=== PATIENT | female | born 1965 | race Caucasian/White ===

== ENCOUNTER 2016-06-07 23:01 | Emergency (ER) ==
[2016-06-07 23:17] VITALS: BP 124/77; TEMP 98.3; BMI 18.1
[2016-06-07] MEDS ORDERED: TORADOL IM STA (23:31)
[2016-06-07] MEDS ORDERED: DILAUDID 1 MG/ML SYRINGE IM STA (23:31)
[2016-06-07] MEDS ORDERED: PHENERGAN 25 MG/ML VIAL IM STA (23:31)
--- NOTE | 2016-06-07 23:34 | ED.PDOC ---
General ED Provider: Dr. KEN FLORES-ER Chief Complaint: Headache Stated Complaint: emilie got a bad migraine Time Seen by Physician: 23:32 Mode of Arrival: Walk-In Information Source: Patient, Family Exam Limitations: No limitations Primary Care Provider: VERO STERN Nursing and Triage Documentation Reviewed and Agree: Yes Neurological Complaint Exam - Headache Complaint/Exam Onset: Gradual Duration: 24hrs Symptoms Are: Still present Timing: Constant Episodes Lasting: Hours Worst Headache Ever: No Initial Severity: Mild Current Severity: Moderate Location: Diffuse Character: Reports: Dull, Throbbing, Pressure, Typical headache, Migraine Aggravating: Reports: Bright lights Alleviating: Reports: None Associated Signs and Symptoms: Reports: Nausea. Denies: Dizziness, Seizure, Vomiting, Sinus pressure, Fever, Neck pain, Neck stiffness, Decreased LOC, Visual changes Related History: Reports: Similar episode Related Surgical History: Reports: None SAH Risk Factors: Reports: None Meningitis Risk Factors: Reports: None SDH Risk Factors: Reports: None Temporal Arteritis Risk Factors: Reports: Female, Normal Head CT Within Last 12 Months: No Fundoscopic Exam: Present: Normal Findings Papilledema Present: No Temporal Artery Tenderness: Present: None Sinus Tenderness: Present: None TMJ Tenderness: Present: None Meningeal Signs Positive: No Pain on Passive Flexion-Positive Kernig's: Yes ROM Limited In: No Limitiations Focal Weakness: Present: None Focal Sensory Loss: Present: None Gait: Normal Nystagmus Present: No Gag Reflex Present: No [id number]: Normal Findings Romberg Test Positive: No Babinski Sign: Negative Right, Negative Left Heel to Toe Normal: No Differential Diagnoses: Migraine Review of Systems - Review Of Systems Constitutional: Reports: No symptoms Eyes: Reports: No symptoms Ears, Nose, Mouth, Throat: Reports: No symptoms Respiratory: Reports: No symptoms Cardiac: Reports: No symptoms GI: Reports: Nausea : Reports: No symptoms Musculoskeletal: Reports: No symptoms Skin: Reports: No symptoms Neurological: Reports: Headache Endocrine: Reports: No symptoms Hematologic/Lymphatic: Reports: No symptoms All Other Systems: Reviewed and Negative Past Medical History - Past Medical History Previously Healthy: No Endocrine: Reports: None Cardiovascular: Reports: None Respiratory: Reports: None Hematological: Reports: None, Anemia (old record) Gastrointestinal: Reports: None Genitourinary: Reports: None Neuro/Psych: Reports: Migraine Musculoskeletal: Reports: Other Cancer: Reports: None Last Menstrual Period: 2014 surg. Other Pertinent Past Medical History: ABLASTION UTERUS MAY 2014 - Surgical History General Surgical History: Reports: Unknown - Family History Family History: Reports: Unknown - Social History Smoking Status: Current every day smoker Hx Substance Use: No Alcohol Screening: None Lives: With family - Immunizations Tetanus Shot up to Date: Yes Physical Exam - Physical Exam Appearance: Well-appearing, No pain distress, Well-nourished Eyes: RICHARD, EOMI, Conjunctiva clear ENT: Ears normal, Nose normal, Oropharynx normal Neck: Supple Respiratory: Airway patent Cardiovascular: RRR, Pulses normal, No rub, No murmur GI/: Soft, Nontender, No masses, Bowel sounds normal, No Organomegaly Musculoskeletal: Normal strength, ROM intact, No edema, No calf tenderness Skin: Warm, Dry, Normal color Neurological: Sensation intact, Motor intact, Reflexes intact, Cranial nerves intact, Alert, Oriented Psychiatric: Affect appropriate, Mood appropriate Interpretation - Radiology Interpretation Radiology Interpretation By: Radiologist Radiology Results: Negative Exam Interpreted: CT Scan Re-Evaluation - Re-Evaluation Time of Re-Evaluation: 00:30 Status: Improved Vital Signs Stable: Yes Pain Level: 0 Appearance: NAD Lungs: Clear Skin: Warm and Dry Neuro: Alert and Oriented X3 CV: RRR Critical Care Note - Critical Care Note Total Time (mins): 0 Course - Course Orders, Labs, Meds: Orders Category Date Time Status SERUM Stat LAB 06/07/16 23:30 Ordered Hydromorphone HCl [Dilaudid 1 mg/ml Syringe] MEDS 06/07/16 23:31 Stat 1 mg IM ONCE STA Ketorolac Tromethamine [Toradol] MEDS 06/07/16 23:31 Stat 60 mg IM ONCE STA Promethazine HCl [Phenergan 25 mg/ml Vial] MEDS 06/07/16 23:31 Stat 25 mg IM ONCE STA CT HEAD W/O CONTRAST Stat RADS 06/07/16 23:30 Ordered Medications Generic Name Dose Route Start Last Admin Trade Name Freq PRN Reason Stop Dose Admin Hydromorphone HCl 1 mg 06/07/16 23:31 Dilaudid 1 Mg/Ml Syringe IM 06/07/16 23:32 ONCE STA Ketorolac Tromethamine 60 mg 06/07/16 23:31 Toradol IM 06/07/16 23:32 ONCE STA Promethazine HCl 25 mg 06/07/16 23:31 Phenergan 25 Mg/Ml Vial IM 06/07/16 23:32 ONCE STA Vital Signs: Temp Pulse Resp BP Pulse Ox 06/07/16 23:08 98.3 F 62 20 124/77 98 Departure - Departure Time of Disposition: 23:34 Disposition: HOME SELF-CARE Discharge Problem: Migraine headache Qualifiers: Migraine type: unspecified Status migrainosus presence: without status migrainosus Intractability: not intractable Qualifier Code: (G43.909) Migraine, unspecified, not intractable, without status migrainosus Instructions: Migraine Headache (ED) Condition: Good Pt referred to PMD for follow-up: Yes Additional Instructions: f/u with pcp Allergies/Adverse Reactions: Allergies erythromycin base Adverse Reaction (Mild, Verified 06/07/16 23:15) Rash Home Medications: Ambulatory Orders 1 [No Reported Medications] 06/07/16 Disposition Discussed With: Patient, Family
[2016-06-07 23:54] LABS: SERUM PREGNANCY INTERNAL QC INTERNAL QC VALID
--- NOTE | 2016-06-08 00:41 | CT ---
EXAM: CT scan brain without contrast HISTORY: Headache COMPARISON: CT scan brain 09/11/2015 FINDINGS: Contiguous axial images were obtained from the skull base to the convexities without cont rast utilizing 5-mm collimation. Sagittal and coronal reconstructions were imaged and reviewed. The ventricles and CSF spaces are within normal limits. No acute intracranial findings. The visualize d paranasal sinuses and mastoid air cells are clear. IMPRESSION: No acute intracranial findings.
== END 2016-06-08 00:50 | disposition home or self-care (01) ==
LOC: ED 23:01
DX: G43.909 Migraine, unspecified, not intractable, without status migrainosus (principal); F17.210 Nicotine dependence, cigarettes, uncomplicated
CPT/HCPCS: 36415; 84703; 96372; 99283

== ENCOUNTER 2016-08-28 09:43 | Emergency (ER) ==
[2016-08-28 09:43] VITALS: BMI 17.9
[2016-08-28 09:46] VITALS: BP 116/80; TEMP 96.4
[2016-08-28 10:04] LABS: BILIRUBIN,URINE 1+ (NEGATIVE); KETONES,URINE Negative (NEGATIVE); LEUKOCYTE ESTERASE ,URINE Negative (NEGATIVE); NITRITE,URINE Negative (NEGATIVE); PH,URINE 5.5 (5-9); PROTEIN,URINE 1+ (NEGATIVE); URINE, BLOOD Trace-intact (NEGATIVE)
[2016-08-28] MEDS ORDERED: NORFLEX IM STA (10:08)
[2016-08-28] MEDS ORDERED: TORADOL IM STA (10:08)
[2016-08-28 10:12] LABS: ADD URINE MICROSCOPIC YES; URINE PREGNANCY INTERNAL QC INTERNAL QC VALID
[2016-08-28 10:13] LABS: BACTERIA,URINE 2+ (NOT PRESENT)
--- NOTE | 2016-08-28 11:32 | ED.PDOC ---
General ED Provider: Dr. LEO MORALES Chief Complaint: Back Pain Stated Complaint: Patient states she has been having right lower back pain for one day that radiates to the right lower extremity. Denies any trauma. Denies any urinary symtoms but states that her urine smells strong. Time Seen by Physician: 11:30 Mode of Arrival: Walk-In Information Source: Patient Primary Care Provider: VERO STERN Nursing and Triage Documentation Reviewed and Agree: Yes Musculoskeletal Complaint Exam - Back Pain Complaint/Exam Mechanism of Injury: Reports: No known trauma Onset/Duration: 1 day Symptoms Are: Still present Timing: Constant Initial Severity: Severe Current Severity: Severe Location: Reports: Discrete (right lower back ), Radiating (right leg ) Character: Reports: Aching, Throbbing Aggravating: Reports: Movements, Bending, Walking Alleviating: Reports: Rest Associated Signs and Symptoms: Reports: Numbness, Pain with weight bearing. Denies: Swelling, Redness, Bruising, Fever, Weakness, Tingling, Abdominal pain, Flank pain, Bladder incontinence, Bowel incontinence, Weight loss TAD Risk Factors: Reports: None AAA Risk Factors: Reports: None Cauda Equina Risk Factors: Reports: None Epidural Abcess Risk Factors: Reports: None Related Surgical History: Reports: None Focal Tenderness: Yes (right ) Paraspinal Muscle Tenderness: Yes Paraspinal Muscle Spasm: Yes Scoliosis: No Lordosis: No Kyphosis: No SLR Test: Right Positive, Left Negative Hip Motion Testing Pain: Right Negative, Left Negative Focal Weakness: Present: None Focal Sensory Loss: Present: None Gait: Present: Abnormal Back Picture: 1 - pain 2 - radiation Differential Diagnoses: Compressive Cord Syndrome, Strain, Sprain, Other ( sciatica ) Review of Systems - Review Of Systems Constitutional: Reports: No symptoms Musculoskeletal: Reports: Back pain, Muscle pain Neurological: Reports: Anxiety All Other Systems: Reviewed and Negative Past Medical History - Past Medical History Previously Healthy: No Endocrine: Reports: None Cardiovascular: Reports: None Respiratory: Reports: None Hematological: Reports: None, Anemia (old record) Gastrointestinal: Reports: None Genitourinary: Reports: None Neuro/Psych: Reports: Migraine Musculoskeletal: Reports: Other Cancer: Reports: None Last Menstrual Period: NONE Other Pertinent Past Medical History: ABLASTION UTERUS MAY 2014 - Surgical History General Surgical History: Reports: Unknown - Family History Family History: Reports: Unknown - Social History Smoking Status: Current every day smoker Hx Substance Use: No Alcohol Screening: None Physical Exam - Physical Exam Appearance: Ill-appearing, Thin Ill-appearing: Mild Pain Distress: Severe Neck: Supple Respiratory: Airway patent, Breath sounds clear, Breath sounds equal, Respirations nonlabored Cardiovascular: RRR, Pulses normal, No rub, No murmur GI/: Soft, Nontender, No masses, Bowel sounds normal, No Organomegaly Musculoskeletal: Normal strength, No edema, No calf tenderness, Limited ROM Skin: Warm Neurological: Sensation intact Interpretation - Radiology Interpretation Radiology Interpretation By: ED Physician Radiology Results: Negative Exam Interpreted: Other (LSpine x ray negative for fracture) Critical Care Note - Critical Care Note Total Time (mins): 0 Course - Course Orders, Labs, Meds: Lab Review 08/28/16 09:30 Urine Color Yellow Urine Clarity Clear Urine pH 5.5 Ur Specific [place] >=1.030 Urine Protein 1+ Urine Glucose (UA) Negative Urine Ketones Negative Urine Blood Trace-intact Urine Nitrite Negative Urine Bilirubin 1+ Urine Urobilinogen 0.2 Ur Leukocyte Esterase Negative Urine Microscopic RBC 2-5 Ur Squamous Epith Cells 5-10 Urine Bacteria 2+ Urine Mucus 2+ Urine Test Negative Orders Category Date Time Status URINALYSIS C & S IF INDICATED Stat LAB 08/28/16 09:30 Completed URINE CULTURE Stat LAB 08/28/16 09:30 Received URINE Stat LAB 08/28/16 09:30 Completed Ketorolac Tromethamine [Toradol] MEDS 08/28/16 10:08 Discontinued 60 mg IM ONCE STA Morphine Sulfate [Morphine 4 mg/ml Syringe] MEDS 08/28/16 11:43 Discontinued 4 mg IM ONCE STA Ondansetron HCl/Pf [Zofran 4 mg/2 ml] MEDS 08/28/16 11:43 Discontinued 4 mg IM ONCE STA Orphenadrine Citrate [Norflex] MEDS 08/28/16 10:08 Discontinued 60 mg IM ONCE STA LUMBAR SPINE, 2 OR 3 VIEWS Stat RADS 08/28/16 11:28 Completed Medications Discontinued Medications Generic Name Dose Route Start Last Admin Trade Name Freq PRN Reason Stop Dose Admin Ketorolac Tromethamine 60 mg 08/28/16 10:08 08/28/16 10:20 Toradol IM 08/28/16 10:09 60 mg ONCE STA Administration Morphine Sulfate 4 mg 08/28/16 11:43 08/28/16 12:00 Morphine 4 Mg/Ml Syringe IM 08/28/16 11:44 4 mg ONCE STA Administration Ondansetron HCl 4 mg 08/28/16 11:43 08/28/16 11:58 Zofran 4 Mg/2 Ml IM 08/28/16 11:44 4 mg ONCE STA Administration Orphenadrine Citrate 60 mg 08/28/16 10:08 08/28/16 10:17 Norflex IM 08/28/16 10:09 60 mg ONCE STA Administration Vital Signs: Temp Pulse Resp BP Pulse Ox 08/28/16 09:43 96.4 F L 97 H 20 116/80 98 Departure - Departure Time of Disposition: 12:07 Disposition: HOME SELF-CARE Discharge Problem: Sciatica of right side UTI (urinary tract infection) Qualifiers: Urinary tract infection type: acute cystitis Hematuria presence: without hematuria Qualifier Code: (N30.00) Acute cystitis without hematuria Instructions: Urinary Tract Infection in Women (ED), Sciatica (ED) Condition: Stable Pt referred to PMD for follow-up: Yes Additional Instructions: Push fluids take antibiotics as prescribed Follow up with PCP in 3 days Prescriptions: Ibuprofen [Motrin] 600 mg PO Q6H #20 tablet Nitrofurantoin Monohyd/M-Cryst [Macrobid] 100 mg PO BID #14 capsule Tramadol HCl [Ultram] 50 mg PO Q4H PRN #15 tablet PRN Reason: Severe Pain Allergies/Adverse Reactions: Allergies erythromycin base Adverse Reaction (Mild, Verified 08/28/16 09:47) Rash Home Medications: Ambulatory Orders Ibuprofen [Motrin] 600 mg PO Q6H #20 tablet 08/28/16 Nitrofurantoin Monohyd/M-Cryst [Macrobid] 100 mg PO BID #14 capsule 08/28/16 Tramadol HCl [Ultram] 50 mg PO Q4H PRN #15 tablet 08/28/16 Disposition Discussed With: Patient
[2016-08-28] MEDS ORDERED: NORCO 5-325 PO STA (11:38)
[2016-08-28] MEDS ORDERED: ZOFRAN 4 MG/2 ML IM STA (11:43)
[2016-08-28] MEDS ORDERED: MORPHINE 4 MG/ML SYRINGE IM STA (11:43)
--- NOTE | 2016-08-28 17:56 | DI ---
EXAM: Three views of the lumbar spine. History: Lower back pain. Findings: No acute fracture or subluxation. Disc space heights are preserved. Impression: Unremarkable exam.
== END 2016-08-28 13:00 | disposition home or self-care (01) ==
LOC: ED 09:43
DX: N30.00 Acute cystitis without hematuria (principal); M54.41 Lumbago with sciatica, right side; F17.210 Nicotine dependence, cigarettes, uncomplicated
CPT/HCPCS: 81001; 81025; 87086; 96372; 99283

== ENCOUNTER 2016-09-01 06:09 | Emergency (ER) ==
[2016-09-01 06:10] VITALS: BMI 17.9
[2016-09-01 06:22] VITALS: BP 122/76; TEMP 97.3
--- NOTE | 2016-09-01 06:44 | ED.PDOC ---
General ED Provider: Dr. BRANNON ODOM JR Chief Complaint: Urinary Problem Stated Complaint: right lower back pain, nausea, unable to sleep, dizziness. since starting Nitrofurantoin 08/28/16 kidney infection - in ER.[End] NAUSEA SINCE ANTIBIOTIC for KIDNEY INFECTION.EATING WITH ANTIBIOTICS NAUSEATED. INFECTION IMPROVING, RIGHT FLANK PAIN MALASE.[End] 3 days 97.3 83 20 98% 122/ 76 5/10. patient feeling better lying down,denies nausea medicaton in past, mother requests labs due to family history of renal failure, patient appears well, states feels ill nonspecific except right flank pain and tenderness muscle tenderness without definite CVAT on exam. : ROSA KHAN J: 08/28/16Dr. LOE MORALES. : Back Pain: right lower back pain one day radiates right lower extremity. Denies trauma. Denies urinary symtoms urine smells strong.: Severe : Discrete (right lower back ), Radiating (right leg )Focal Tenderness: (right ) Paraspinal Muscle Tenderness: Paraspinal Muscle Spasm:SLR Test: Right Positive, Left Negative: NegativeExam Interpreted: (LSpine x ray negative for fracture) Urine Yellow Clear >=1.030 Bacteria 2+ Mucus 2+ Test Negative [Toradol ] 60 mg IM ONCE STA [Morphine 4 mg/ml Syringe] [Zofran 4 mg/2 ml] [Norflex]60 mg IM LUMBAR SPINE, 2 OR 3 VIEWS Stat-- Sciatica of right side--UTI Push fluidstake antibiotics as prescribed Follow up with PCP in 3 days Ibuprofen [ Motrin] 600 mg PO Q6H #20 tabletNitrofurantoin Monohyd/M-Cryst [Macrobid] 100 mg PO BID #14 capsuleTramadol HCl [Ultram] 50 mg PO Q4H PRN #15 tablet. : ROSA KHAN: [place]. : 06/07/16 : bad migraine: Hours: Dull, Throbbing , Pressure, Typical headache, Migraine: Bright lights Pain on Passive Flexion- Positive Kernig's: : Negative:CT Scan [Dilaudid 1 mg/ml Syringe] [Toradol] 60 mg [Phenergan 25 mg/ml Vial] CT HEAD W/O CONTRAST Migraine headache. : ROSA KHAN : SHAUNA JAMES. : 01/12/16: ABSCESS NASAL Primary Care Provider: VERO STERN (NASAL EXAM POSTIVE ABSCESS DOCUMENTED ON THE PHOTOS EDGE OF NASAL CAVITY LEFT SIDE): Abscess [[place] 10-325 Tablet] [Bactrim Ds 800/160 mg] . : ROSA KHAN : FLOR GARCIA: Been hurting in the head, typical migrain, usually gets better with exdrine but not today. light bothering: Severe Location: Left, Frontal: Bright lights Pain on Passive Flexion-Positive Kernig's : No ;Babinski Sign: Negative Right, Negative Left: Migraine: Negative: CT Scan [Morphine 2 mg/ml Syringe] [Zofran 4 mg/2 ml] CT HEAD W/O CONTRAST Stat [[place] 10-325 Tablet]. : ROSA KHAN: SHAUNA JAMES. : 03/04/15 : Neck Pain Non- Injury: neck pain chronic(encounter for med Primary Care Provider:FLOR GARCIA- C: Neck pain, medication refill: Cervical Sprain (ED) [[place] 10-325 Tablet]. : ROSA KHAN. : 02/03/15 Dr. SHAUNA Acuna: left hand /arm numness(no trauma slept in a postion caused the issue): Arm numbness left: Paresthesia, Cervical Sprain, Cervical Radiculopathy: clinic for MRI /NEUROLOGY CONSULT. : ROSA KHAN: 10/03/14 : Nose Injury: PAIN NOSE SEEN 10/01 FOR CELLULITIS OF NASAL TIP. INSTRUCTED SEEK ADITIONAL MEDICAL CARE IF NO IMPROVMENT. HEADACHE.[ End] er 10/01 same problem a lot better but headache. no injury to nose,has a sore. nose is slightly swollen and red.[End]. difficult history, better than initial worse than yesterday up all night with headache, unwilling to take excedrin with narosyn, nose more painful, took Naprosyn yesterday;usual headache always better with excedrin, declines pain shots,has had no excedrin ( right nostril without fluctuance or drainage no focal abscess seen or palpable- offered toradol offered repeat rocephin)(scalp nontender nose is card tender no LAD supple )begin new antibiotic only if not resolved(if pain and swelling are not better)continue Bactrim, Naprosyn and [place] for pain Excedrin, but not within 8 hours of taking Naprosyn double Excedrin if needed for headache continue warm soaks[[place] 5-325] [Naprosyn] [Bactrim Ds Tablet] [Augmentin 875 -125 mg Tab]. : ROSA KHAN. : 10/01/14 : Dr. BRANNON ODOM JR: NOSE SWOLLEN SORE INSIDE RIGHT SIDE OF NOSTIL, RED SWOLLEN WITH SWELLING INTO RIGHT EYE[ End ]2days. Sinus pain Nose Picture: 1 - red swollen [place] 5-325 Rocephin : Cellulitis of nasal tip: (recheck tomorrow)PMD, may recheck here if able to come in at 6AM()pain and swelling should improve quickly antibiotic until gone may use warm soaks four times a day[[place] 5-325] [Naprosyn] 500 mg [Bactrim Ds Tablet] Time Seen by Physician: 06:46 Mode of Arrival: Walk-In Information Source: Patient Exam Limitations: No limitations Primary Care Provider: VERO STERN Nursing and Triage Documentation Reviewed and Agree: No Review of Systems - Review Of Systems Constitutional: Reports: Malaise, Weakness Eyes: Reports: No symptoms Ears, Nose, Mouth, Throat: Reports: No symptoms Respiratory: Reports: No symptoms Cardiac: Reports: No symptoms GI: Reports: No symptoms : Reports: Flank pain. Denies: Dysuria Musculoskeletal: Reports: Back pain Skin: Reports: No symptoms Neurological: Reports: No symptoms Endocrine: Reports: No symptoms Hematologic/Lymphatic: Reports: No symptoms All Other Systems: Other Past Medical History - Past Medical History Previously Healthy: No Endocrine: Reports: None Cardiovascular: Reports: None Respiratory: Reports: None Hematological: Reports: None, Anemia (old record) Gastrointestinal: Reports: None Genitourinary: Reports: None Neuro/Psych: Reports: Migraine Musculoskeletal: Reports: Other Cancer: Reports: None Last Menstrual Period: 05/26 Other Pertinent Past Medical History: ABLASTION UTERUS MAY 2014 - Surgical History General Surgical History: Reports: Unknown - Family History Family History: Reports: Unknown - Social History Smoking Status: Current every day smoker Hx Substance Use: No Alcohol Screening: None - Immunizations Tetanus Shot up to Date: Yes Physical Exam - Physical Exam Appearance: Well-appearing, Thin, Cachectic Pain Distress: Mild Eyes: RICHARD, EOMI, Conjunctiva clear ENT: Ears normal, Nose normal, Oropharynx normal Neck: Supple Respiratory: Airway patent, Breath sounds clear, Breath sounds equal, Respirations nonlabored Cardiovascular: RRR, Pulses normal, No rub, No murmur GI/: Soft, Nontender, No masses, Bowel sounds normal, No Organomegaly Musculoskeletal: Normal strength, ROM intact, No edema, No calf tenderness ( tender right flank superficial no lesions no radiation) Skin: Warm, Dry, Normal color Neurological: Sensation intact, Motor intact, Reflexes intact, Cranial nerves intact ([place]), Alert, Oriented Psychiatric: Affect appropriate, Mood appropriate Critical Care Note - Critical Care Note Total Time (mins): 0 Course - Course Hematology/Chemistry: 09/01/16 06:55 09/01/16 06:55 Orders, Labs, Meds: Lab Review 09/01/16 06:55 WBC 7.01 RBC 4.51 Hgb 14.2 Hct 39.8 MCV 88.2 MCH 31.5 H MCHC 35.7 H RDW Coeff of David 12.3 Plt Count 269 Immature Gran % (Auto) 0.1 Neut % (Auto) 52.2 Lymph % (Auto) 28.7 [place] % (Auto) 9.4 Eos % (Auto) 7.7 H Baso % (Auto) 1.9 Immature Gran # (Auto) 0.0 Neut # 3.7 Lymph # 2.0 [place] # 0.7 Eos # 0.5 Baso # 0.1 Sodium 141 Potassium 3.6 Chloride 104 Carbon Dioxide 29 Anion Gap 11.6 BUN 15 Creatinine 0.79 Estimated GFR (MDRD) 77.00 BUN/Creatinine Ratio 18.98 Glucose 49 L* Calcium 9.2 Total Bilirubin 0.48 AST 18 ALT 23 Alkaline Phosphatase 72 Total Protein 6.9 Albumin 4.0 Globulin 2.9 Albumin/Globulin Ratio 1.38 Amylase 58 Lipase 24 Urine Color Yellow Urine Clarity Clear Urine pH 6.0 Ur Specific [place] 1.025 Urine Protein Negative Urine Glucose (UA) Negative Urine Ketones Negative Urine Blood Trace-intact Urine Nitrite Negative Urine Bilirubin Negative Urine Urobilinogen 0.2 Ur Leukocyte Esterase Negative Urine Microscopic RBC 2-5 Urine Microscopic WBC 2-5 Ur Squamous Epith Cells 2-5 Orders Category Date Time Status AMYLASE Stat LAB 09/01/16 06:55 Completed CBC W/ AUTO DIFF Stat LAB 09/01/16 06:55 Completed COMPREHENSIVE METABOLIC PANEL Stat LAB 06/21/17 06:55 Completed LIPASE Stat LAB 09/01/16 06:55 Completed UA [URINALYSIS C & S IF INDICATED] Stat LAB 09/01/16 06:55 Completed Promethazine Syrup [Phenergan Syrup] MEDS 09/01/16 06:53 Discontinued 10 ml PO ONCE STA CT ABDOMEN/PELVIS WO CONTRAST Stat RADS 09/01/16 07:21 Completed Medications Discontinued Medications Generic Name Dose Route Start Last Admin Trade Name Ced PRN Reason Stop Dose Admin Promethazine HCl 10 ml 09/01/16 06:53 09/01/16 07:02 Phenergan Syrup PO 09/01/16 06:54 10 ml ONCE STA Administration Vital Signs: Temp Pulse Resp BP Pulse Ox 09/01/16 06:13 97.3 F L 83 20 122/76 98 Departure - Departure Time of Disposition: 08:08 Disposition: HOME SELF-CARE Discharge Problem: Nausea alone Medication adverse effect Qualifiers: Encounter type: initial encounter Qualifier Code: (T88.7XXA) Unspecified adverse effect of drug or medicament, initial encounter Back pain Qualifiers: Back pain location: low back pain Chronicity: chronic Back pain laterality: right Sciatica presence: without sciatica Qualifier Code: (M54.5) Low back pain Instructions: Adverse Drug Reaction (ED), Chronic Back Pain (ED), Dextrose/ Fructose/Phosphoric Acid (By mouth) Condition: Good Pt referred to PMD for follow-up: Yes Additional Instructions: stop nitrofuratoin continue to increase fluids, expect to get 4-8 eight ounce cups of liquid in daily discuss back pain with PMD may follow with [facility] note decreased vitamin D in past - ask PMD if supplements are indicated may use phenergan for nausea may use flexeril for back spasms- discuss with PMD eat small amounts frequently return if worse note sugar was low- recommend increase complex carbohydrates(vegetables) Prescriptions: Cyclobenzaprine HCl [Flexeril] 5 mg PO TID PRN #15 tablet PRN Reason: Spasms Promethazine HCl [Phenergan Tab] 25 mg PO QID PRN #12 tablet PRN Reason: Nausea / Vomiting Allergies/Adverse Reactions: Allergies erythromycin base Adverse Reaction (Mild, Verified 09/01/16 06:22) Rash Home Medications: Ambulatory Orders Ibuprofen [Motrin] 600 mg PO Q6H #20 tablet 08/28/16 Nitrofurantoin Monohyd/M-Cryst [Macrobid] 100 mg PO BID #14 capsule 08/28/16 Cyclobenzaprine HCl [Flexeril] 5 mg PO TID PRN #15 tablet 09/01/16 Promethazine HCl [Phenergan Tab] 25 mg PO QID PRN #12 tablet 09/01/16
[2016-09-01] MEDS ORDERED: PHENERGAN SYRUP PO STA (06:53)
[2016-09-01 07:06] LABS: BASOPHILS # (AUTO) 0.1 K/uL (0-0.2); BASOPHILS % (AUTO) 1.9 % (0.0-3.0); EOSINOPHILS # (AUTO) 0.5 K/ul (0.0-0.7); EOSINOPHILS % (AUTO) 7.7 % (0.0-7.0); HEMATOCRIT 39.8 % (37.0-47.0); HEMOGLOBIN 14.2 g/dl (12.0-16.0); IMMATURE GRANULOCYTE % (AUTO) 0.1 % (0.0-5.0); LYMPHOCYTES % (AUTO) 28.7 (10.0-50.0); MEAN CORPUSCULAR HEMOGLOBIN 31.5 pg (27.0-31.0); MEAN CORPUSCULAR HGB CONC 35.7 (31.8-35.4); MEAN CORPUSCULAR VOLUME 88.2 fl (81.0-99.0); MONOCYTES # (AUTO) 0.7 K/uL (0.4-2.0); MONOCYTES % (AUTO) 9.4 (0-10); NEUTROPHILS # (AUTO) 3.7 K/ul (2.0-6.9); NEUTROPHILS % (AUTO) 52.2; PLATELET COUNT 269 10^3/uL (140-440); RED BLOOD COUNT 4.51 10^6/ul (4.20-5.40); WHITE BLOOD COUNT 7.01 K/ul (4.6-10.2)
[2016-09-01 07:10] LABS: BILIRUBIN,URINE Negative (NEGATIVE); KETONES,URINE Negative (NEGATIVE); LEUKOCYTE ESTERASE ,URINE Negative (NEGATIVE); NITRITE,URINE Negative (NEGATIVE); PROTEIN,URINE Negative (NEGATIVE); URINE, BLOOD Trace-intact (NEGATIVE)
[2016-09-01 07:18] LABS: ADD URINE MICROSCOPIC YES
[2016-09-01 07:25] LABS: ALBUMIN/GLOBULIN RATIO 1.38; ANION GAP 11.6; BILIRUBIN,TOTAL 0.48 mg/dL (0.00-1.20); BUN/CREATININE RATIO 18.98; CALCIUM 9.2 mg/dL (8.2-10.2); CREATININE 0.79 mg/dL (0.60-1.30); POTASSIUM 3.6 mmol/L (3.5-5.10); TOTAL PROTEIN 6.9 g/dL (6.4-8.2)
--- NOTE | 2016-09-01 08:07 | CT ---
EXAM: CT ABDOMEN AND PELVIS HISTORY: Flank pain, right-sided, hematuria TECHNIQUE: CT abdomen and pelvis without intravenous contrast. Images were reconstructed using 3 m m section thickness. Reformations were prepared. COMPARISON: None FINDINGS: Paucity of intraperitoneal fat leads difficulty visualizing certain organs and abdominal/pelvic comp artments. There is at least one punctate calcification within the right kidney measuring about 0.2 cm consistent with nephrolithiasis. Ureters are poorly seen, especially the distal aspects. There is no convincing evidence of ureteral calculus. No secondary signs of ureteral obstruction are pres ent including no hydronephrosis. Without intravenous contrast administration, evaluation for pyelon ephritis is limited and clinical correlation is recommended. There is no noticeable perinephric fat stranding identified. The liver and spleen have no visible focal lesions. Gallbladder, pancreas a nd adrenal glands within normal limits. Mild atherosclerotic disease. Stomach grossly within normal limits. No appendix is identified. Bowel gas pattern is within sara l limits. Uterus and urinary bladder are within normal limits. No ascites is visualized. Ventral abdominal wall is intact without herniation. Bones appear appropriate for age. Lung bases are clear. There is no pneumoperitoneum. IMPRESSION: 1. Right nephrolithiasis. Poor visualization of the ureters secondary to a paucity of intraperiton eal fat. No convincing evidence of ureteral obstruction. No hydronephrosis. Urinary bladder gross ly unremarkable. 2. Minimal atherosclerosis.
== END 2016-09-01 08:20 | disposition home or self-care (01) ==
LOC: ED 06:09
DX: M54.5 Low back pain (principal); R11.0 Nausea; T88.7XXA Unspecified adverse effect of drug or medicament, initial encounter; R42 Dizziness and giddiness; F17.210 Nicotine dependence, cigarettes, uncomplicated; N28.89 Other specified disorders of kidney and ureter
CPT/HCPCS: 36415; 80053; 81001; 82150; 82962; 83690; 85025; 99283

== ENCOUNTER 2018-07-20 07:43 | Emergency (ER) ==
[2018-07-20 08:01] VITALS: BP 128/77; TEMP 97.8; BMI 17.8
[2018-07-20] MEDS ORDERED: DUONEB NEB STA (08:04)
--- NOTE | 2018-07-20 08:10 | ED.PDOC ---
General ED Provider: Dr. SHAUNA JAMES Chief Complaint: Respiratory Complaint Stated Complaint: cough, congestion Time Seen by Physician: 08:00 (beth present at all times ) Mode of Arrival: Walk-In Information Source: Patient Exam Limitations: No limitations Nursing and Triage Documentation Reviewed and Agree: Yes Does patient meet sepsis criteria?: No If yes, has appropriate treatment been initiated?: No (1 pk/day smoker ) System Inflammatory Response Syndrome: Not Applicable Sepsis Protocol: For patient's 13 years and over: Temp is 96.8 and below OR 101 and greater Pulse >90 BPM Resp >20/minute Acutely Altered Mental Status Are patient's symptoms suggestive of a new infection, such as: -Pneumonia -Skin, Soft Tissue -Endocarditis -UTI -Bone, Joint Infection -Implantable Device -Acute Abdominal Infection -Wound Infection -Meningitis -Blood Stream Catheter Infection -Unknown Respiratory Complaint Exam - Respiratory Complaint/Exam Onset/Duration: 2 days Symptoms Are: Still present Timing: Constant Initial Severity: Mild Current Severity: Mild Location: Nose, Throat, Chest Character: Reports: Non-productive cough Aggravating: Reports: URI, Weather Alleviating: Reports: None Associated Signs and Symptoms: Reports: URI, Nasal congestion. Denies: Rapid breathing, Dyspnea, Fever, Chills, Chest pain, Pleuritic chest pain, Wheezing, Hemoptysis, Dizziness, Calf pain, Calf swelling, Edema, Hoarseness, Sinus discomfort, Vomiting, Sore throat, Weight loss, Decreased oral intake, Increased thirst, Increased appetite, Increased urination Related History: Reports: Similar episode History of Healthcare-Acquired Pneumonia: No Related Surgical History: Reports: None Pulmonary Embolism Risk Factors: Smoking Cardiac Risk Factors: Reports: Smoking Pseudomonas Risk Factors: Reports: None Tuberculosis Risk Factors: Reports: None Status Asthmaticus Risk Factors: Reports: None Home Oxygen Use: No Recent Stress Test: No Recent Echo/LV Function: No Current Antibiotic Use: No Current Asthma Medication Use: No Respiratory Distress: None Inadequate Respiratory Effort: No Dysphagia Present: No Stridor Present: No JVD Present: No Accessory Muscle Use: No Retractions: Not Present Diminished Breath Sounds: No Sinus Tenderness: None Grunting Respirations: No Kussmaul Respirations: No Differential Diagnoses: Pneumonia, Bronchitis, URI, Influenza, Lower Resp. Infection Review of Systems - Review Of Systems Constitutional: Reports: Malaise Eyes: Reports: No symptoms Ears, Nose, Mouth, Throat: Reports: No symptoms Respiratory: Reports: Cough Cardiac: Reports: No symptoms GI: Reports: No symptoms : Reports: No symptoms Musculoskeletal: Reports: No symptoms Skin: Reports: No symptoms Neurological: Reports: No symptoms Endocrine: Reports: No symptoms Hematologic/Lymphatic: Reports: No symptoms All Other Systems: Reviewed and Negative Past Medical History - Past Medical History Previously Healthy: No Endocrine: Reports: None Cardiovascular: Reports: None Respiratory: Reports: None Hematological: Reports: Anemia, None Gastrointestinal: Reports: None Genitourinary: Reports: None Neuro/Psych: Reports: Migraine Musculoskeletal: Reports: Other Cancer: Reports: None Last Menstrual Period: N./A Other Pertinent Past Medical History: ABLASTION UTERUS MAY 2014 - Surgical History General Surgical History: Reports: Unknown - Family History Family History: Reports: Unknown - Social History Smoking Status: Current every day smoker Hx Substance Use: No Alcohol Screening: None Physical Exam - Physical Exam Appearance: Ill-appearing Ill-appearing: Mild Eyes: RICHARD, EOMI, Conjunctiva clear ENT: Ears normal, Nose normal, Oropharynx normal Respiratory: Rhonchi, Wheezes Cardiovascular: RRR, Pulses normal, No rub, No murmur GI/: Soft, Nontender, No masses, Bowel sounds normal, No Organomegaly Musculoskeletal: Normal strength, ROM intact, No edema, No calf tenderness Skin: Warm, Dry, Normal color Neurological: Sensation intact, Motor intact, Reflexes intact, Cranial nerves intact, Alert, Oriented Psychiatric: Affect appropriate, Mood appropriate Critical Care Note - Critical Care Note Total Time (mins): 0 Course - Course Hematology/Chemistry: 07/20/18 08:10 07/20/18 08:10 Orders, Labs, Meds: Lab Review 07/20/18 07/20/18 07/20/18 08:03 08:10 08:10 WBC 9.84 RBC 4.51 Hgb 14.1 Hct 39.7 MCV 88.0 MCH 31.3 H MCHC 35.5 H RDW Coeff of David 12.1 Plt Count 237 Immature Gran % (Auto) 0.2 Neut % (Auto) 82.9 Lymph % (Auto) 4.2 L Love % (Auto) 8.1 Eos % (Auto) 3.6 Baso % (Auto) 1.0 Immature Gran # (Auto) 0.0 Neut # (Auto) 8.2 H Lymph # (Auto) 0.4 L Love # (Auto) 0.8 Eos # (Auto) 0.4 Baso # (Auto) 0.1 Sodium 133.6 L Potassium 3.47 L Chloride 100.2 Carbon Dioxide 26.2 Anion Gap 10.67 BUN 10.7 Creatinine 0.58 L Estimated GFR (MDRD) 110.00 BUN/Creatinine Ratio 18.44 Glucose 110.1 H Calcium 8.85 Total Bilirubin 0.83 AST 25.9 ALT 21.2 Alkaline Phosphatase 80.4 Total Protein 6.68 Albumin 4.38 Globulin 2.30 Albumin/Globulin Ratio 1.90 Urine Color Urine Clarity Urine pH Ur Specific Cheney Urine Protein Urine Glucose (UA) Urine Ketones Urine Blood Urine Nitrite Urine Bilirubin Urine Urobilinogen Ur Leukocyte Esterase Urine Microscopic RBC Ur Squamous Epith Cells Urine Mucus Influ A Molecular Assay Negative by naat Influ B Molecular Assay Negative by naat 07/20/18 09:00 WBC RBC Hgb Hct MCV MCH MCHC RDW Coeff of David Plt Count Immature Gran % (Auto) Neut % (Auto) Lymph % (Auto) Love % (Auto) Eos % (Auto) Baso % (Auto) Immature Gran # (Auto) Neut # (Auto) Lymph # (Auto) Love # (Auto) Eos # (Auto) Baso # (Auto) Sodium Potassium Chloride Carbon Dioxide Anion Gap BUN Creatinine Estimated GFR (MDRD) BUN/Creatinine Ratio Glucose Calcium Total Bilirubin AST ALT Alkaline Phosphatase Total Protein Albumin Globulin Albumin/Globulin Ratio Urine Color Yellow Urine Clarity Hazy Urine pH 7.5 Ur Specific Cheney 1.020 Urine Protein 1+ Urine Glucose (UA) Negative Urine Ketones Negative Urine Blood Trace-intact Urine Nitrite Negative Urine Bilirubin Negative Urine Urobilinogen 1.0 Ur Leukocyte Esterase Negative Urine Microscopic RBC 0-2 Ur Squamous Epith Cells 50-100 Urine Mucus Trace Influ A Molecular Assay Influ B Molecular Assay Orders Category Date Time Status NEBULIZER TREATMENT Stat CARDIO 07/20/18 08:05 Completed CBC W/ AUTO DIFF Stat LAB 07/20/18 08:10 Completed COMPREHENSIVE METABOLIC PANEL Stat LAB 07/20/18 08:10 Completed FLU A/B MOLECULAR Stat LAB 07/20/18 08:03 Completed MOLECULAR GROUP A STREP Stat LAB 07/20/18 08:03 Completed UA [URINALYSIS C & S IF INDICATED] Stat LAB 07/20/18 09:00 Completed Ipratropium/Albuterol Neb [Duoneb] MEDS 07/20/18 08:04 Discontinued 1 vial NEB ONCE STA CT CHEST W/O CONTRAST Stat RADS 07/20/18 08:04 Completed Medications Discontinued Medications Generic Name Dose Route Start Last Admin Trade Name Ced PRN Reason Stop Dose Admin Albuterol/Ipratropium 1 vial 07/20/18 08:04 07/20/18 08:22 Duoneb NEB 07/20/18 08:05 1 vial ONCE STA Administration Vital Signs: Temp Pulse Resp BP Pulse Ox 07/20/18 07:44 97.8 F 78 20 128/77 95 Departure - Departure Time of Disposition: 09:31 Disposition: HOME SELF-CARE Discharge Problem: Bronchitis Instructions: How to Stop Smoking (ED), Acute Bronchitis (ED), Smoke Inhalation (ED), Secondhand Smoke Exposure in Children (ED), Tobacco Stomatitis (DC) Condition: Good Pt referred to PMD for follow-up: Yes IPMP verified?: No Additional Instructions: Please call your Family Physician as soon as possible to schedule a follow-up appointment. Prescriptions: Amoxicillin 500 mg PO Q8HR #21 tablet Hydrocodone/Chlorphen Polis [Tussionex] 5 ml PO Q12H 5 Days disp.syrin Prednisone 20 mg PO DAILYWM #5 tablet Allergies/Adverse Reactions: Allergies erythromycin base Adverse Reaction (Mild, Verified 07/20/18 07:55) Rash Home Medications: Ambulatory Orders Amoxicillin 500 mg PO Q8HR #21 tablet 07/20/18 Hydrocodone/Chlorphen Polis [Tussionex] 5 ml PO Q12H 5 Days disp.syrin Prednisone 20 mg PO DAILYWM #5 tablet 07/20/18 Disposition Discussed With: Patient, Family
--- NOTE | 2018-07-20 09:05 | CT ---
EXAM: CT of the chest without contrast History: Cough, smoker. Comparison: Chest CT 10/24/2009 Technique: Multiplanar CT images through the thorax were obtained without the administration of IV c ontrast Findings: Heart size is normal. No pericardial effusion. No thoracic aortic aneurysm. No patholog ically enlarged thoracic lymph nodes. No consolidation. No pleural fluid and no pneumothorax. Mild upper lobe predominant emphysema. No lung masses or lung nodules. Within the visualized upper abdomen, no acute findings. No acute osseous abnormalities. Impression: No acute intrathoracic process. Mild emphysema
== END 2018-07-20 09:55 | disposition home or self-care (01) ==
LOC: ED 07:43
DX: J40 Bronchitis, not specified as acute or chronic (principal); E87.1 Hypo-osmolality and hyponatremia; F17.210 Nicotine dependence, cigarettes, uncomplicated
CPT/HCPCS: 36415; 80053; 81001; 85025; 87502; 87651; 94640; 99284